=== PATIENT | male | born 1985 | race Caucasian/White ===

== ENCOUNTER 2018-01-29 18:41 | Emergency (ER) | payer MEDICAID ==
[2018-01-29] MEDS: KETOROLAC 30 MG INJ IM (23:01)
== END 2018-01-30 01:42 | disposition home or self-care (01) ==
LOC: FTE 01-30 01:42
DX: M79.12 Myalgia of auxiliary muscles, head and neck (principal); R40.2412 Glasgow coma scale score 13-15, at arrival to emergency department
CPT/HCPCS: 70360; 96372; 99284-25